=== PATIENT | female | born 1960 | race Caucasian/White ===

== ENCOUNTER 2022-09-26 09:52 | Outpatient (CLI) | payer OTHER | END 2022-09-26 09:59 | disposition home or self-care (01) | LOC: SONOGRAMA 09:52 | PROVIDERS: ATTEND Pathology Anatomic Pathology & Clinical Pathology | DX: D34 Benign neoplasm of thyroid gland (principal); E04.9 Nontoxic goiter, unspecified; E04.1 Nontoxic single thyroid nodule ==